=== PATIENT | male | born 1965 | race Caucasian/White ===

== ENCOUNTER 2022-03-29 00:31 | Emergency (ER) | payer MEDICAID, SELFPAY ==
[2022-03-29 00:31] VITALS: BP 179/77; PULSE 79; RESP 16; TEMP 37.1; O2SAT 96; BMI 30.2
--- NOTE | 2022-03-29 00:43 | XR_ITS ---
PROCEDURE INFORMATION: Exam: XR Chest Exam date and time: 03/29/2022 12:47 AM Age: 56 years old Clinical indication: Other: Abdomen pain; Prior surgery; Additional info: Abd pain TECHNIQUE: Imaging protocol: Radiologic exam of the chest. Views: 2 views. COMPARISON: No relevant prior studies available. FINDINGS: Lungs: No acute airspace consolidation. No appreciable pulmonary edema. Pleural spaces: No pleural effusion. No pneumothorax. Heart/Mediastinum: Cardiomediastinal silouhette is within normal limits. Aortic endograft stent within the aortic arch and descending aorta appears grossly intact. Bones/joints: No evidence of acute osseous abnormality. IMPRESSION: No acute findings.
--- NOTE | 2022-03-29 00:43 | CT_ITS ---
PROCEDURE INFORMATION: Exam: CT Abdomen And Pelvis With Contrast Exam date and time: 03/29/2022 1:33 AM Age: 56 years old Clinical indication: Abdominal pain; Prior surgery; Additional info: Abd pain TECHNIQUE: Imaging protocol: Computed tomography of the abdomen and pelvis with contrast. Radiation optimization: All CT scans at this facility use at least one of these dose optimization techniques: automated exposure control; mA and/or kV adjustment per patient size (includes targeted exams where dose is matched to clinical indication); or iterative reconstruction. Contrast material: ISOVUE; Contrast volume: 75 ml; Contrast route: IV; COMPARISON: CR XR CHEST 2V 03/29/2022 12:47 AM FINDINGS: Diaphragm: Small hiatal hernia. Liver: Fatty liver. No suspicious liver lesions. Gallbladder and bile ducts: Status post cholecystectomy. Pancreas: Unremarkable. Spleen: Scattered punctate calcifications in the spleen compatible with sequelae of prior granulomatous disease. Adrenal glands: Unremarkable. Kidneys and ureters: Simple renal cyst in the right kidney. Renal cortical scarring in the lower pole the right kidney. Bilateral kidneys are otherwise unremarkable. Delayed phase imaging demonstrates symmetric excretion of intravenous contrast material into the bilateral renal collecting systems without focal defects. Stomach and bowel: No evidence of small bowel obstruction. Colonic diverticulosis without evidence of acute diverticulitis. Appendix: Appendix is visualized and is normal. Intraperitoneal space: No free fluid. No pneumoperitoneum. Vasculature: Descending aortic endovascular stent graft partially visualized. No abdominal aortic aneurysm or dissection. Proximal abdominal aorta immediately distal to the descending aortic endovascular stent graft measures 4.1 cm in diameter, including an intramural hematoma measuring 14 mm in thickness. Extensive amount of calcified and noncalcified arterial atherosclerosis throughout the aorta without significant stenosis or evidence of plaque ulcerations. No infra-abdominal aortic aneurysm. Proximal right renal artery stent and right common iliac artery stent in place. Lymph nodes: Unremarkable. Urinary bladder: Bladder is decompressed, limiting evaluation. Reproductive: Unremarkable. Bones/joints: Bilateral pars defects at L5 with grade 2 anterolisthesis of L5 on S1. No evidence of acute osseous abnormality. Soft tissues: Small fat containing umbilical hernia. IMPRESSION: 1. No acute findings in the abdomen or pelvis. 2. Proximal abdominal aorta immediately distal to the descending aortic endovascular stent graft measures 4.1 cm in diameter, including an intramural thrombus measuring 14 mm in thickness. No evidence of associated periaortic inflammatory changes. 3. Fatty liver. 4. Colonic diverticulosis without evidence of acute diverticulitis. 5. Bilateral pars defects at L5 with grade 2 anterolisthesis of L5 on S1. 6. Small hiatal hernia. 7. Additional non-acute ancillary findings are detailed above. COMMENTS: Consistent with the [employer]'s Incidental Findings Committee white paper (J Am Uday Radiol 2018): Any incidental renal lesion less than 1 cm or classified as too small to characterize, or any incidental cystic renal lesion characterized as simple-appearing, is likely benign. No follow-up imaging is recommended for these lesions per consensus recommendations based on imaging criteria.
--- NOTE | 2022-03-29 00:46 | ECG_ITS ---
APPROVED REPORT Exam: Resting ECG HR:77 bpm ECG Measurements Heart Rate 77 AXES OK 155 P 54 QRSd 93 QRS 17 QT 407 T 17 QTc 438 Conclusion SINUS RHYTHM NORMAL ECG UNCONFIRMED REPORT Electronically signed by : Cesar Pagan MD 03/31/2022 21:21:57
--- NOTE | 2022-03-29 00:56 | HMH.EDABDPAI ---
Discharge Plan Disposition Patient Disposition: Home, Self-Care Clinical Impressions Clinical Impression: Abdominal pain, Diabetes mellitus Instructions Patient Instructions: DI for Acute Abdominal Pain Discharge ED Provider: Shoaib Tello Abdominal Pain HPI General Chief Complaint: Abdominal Pain Stated Complaint: ABD Pain Time Seen by Provider: 03/29/22 00:56 Mode of Arrival: EMS Source of Information: Patient, EMS and Medical Record Limitations: No Limitations Description of Symptoms (Recalled from ER Triage Doc. by RN): pt stated he had sharp abdominal pain today so badly that it knocked him down. pt reports no LOC pt a&o x4. pt then stated that he feels like his stomach is on fire. History of Present Illness HPI narrative: acute upper abd pain w/o fever or vomiting - has hx of diabetes - no melena complaint: abdominal pain Onset (ago): hour(s) Consistency: intermittent Location: epigastric Severity: moderate Quality: sharp Radiation: epigastric Associated symptoms: denies other symptoms Related Data Allergies Allergy/AdvReac Type Severity Reaction Status Date / Time No Known Allergies Allergy Verified 03/29/22 00:35 PFSH [facility] Medical History (Updated 03/29/22 @ 02:59 by Shoaib Tello MD) Arterial dissection Deep vein thrombosis (DVT) Diabetes History of heart attack History of stroke Hypertension Surgical History (Updated 03/29/22 @ 00:47 by Ailyn Wise RN) History of cholecystectomy Social History Smoking Status: Unknown if ever smoked alcohol intake: never current occupational status: employed Travel in the last 8 weeks: None ROS Obtained: Yes All systems reviewed & no additional complaints except as documented Cardiovascular Cardiovascular: Denies dyspnea Respiratory Respiratory: Denies dyspnea Gastrointestinal Gastrointestingal: Reports as per HPI; Denies melena Physical Exam General General appearance: alert Head Head exam: normocephalic Eye Eye exam: Present PERRL and EOMI; Absent scleral icterus ENT ENT exam: Present mucous membranes moist Neck Neck exam: Present trachea midline Respiratory Respiratory exam: Present normal lung sounds bilaterally; Absent respiratory distress Cardiovascular Cardiovascular exam: Present regular rate and systolic murmur Abdominal Exam Abdominal exam: Present soft and tenderness; Absent guarding or rebound Abdominal tenderness: Present epigastrium and moderate Extremities Exam Extremities exam: Present full ROM Neurological Exam Neurological exam: Present alert, oriented X3 and CN II-XII intact Psychiatric Psychiatric exam: Present normal affect Skin Skin exam: Absent rash Medical Decision Making Medical Records Medical records reviewed: Yes I reviewed the patient's medical records. Joey Inquiry Pt receiving controlled substance: No Vital Signs: 03/29/22 00:31 Temperature 98.8 F Temperature Source Oral Pulse Rate [Left] 79 Respiratory Rate 16 Blood Pressure [Right Arm] 179/77 H Blood Pressure Mean [Right Arm] 111 02 Sat by Pulse Oximetry 96 Oxygen Delivery Method Room Air Lab Data Lab results reviewed: Yes I reviewed the patient's lab results. Lab Results 03/29/22 00:30: WBC 9.5, RBC 5.48, Hgb 16.4, Hct 51.7, MCV 94.3 H, MCH 29.9, MCHC 31.7 L, RDW 15.4, Plt Count 245, MPV 9.3, Neut % (Auto) 70.8, Lymph % (Auto) 18.8, [place] % (Auto) 5.5, Eos % (Auto) 4.0, Baso % (Auto) 1.0, Neut # (Auto) 6.8, Lymph # (Auto) 1.8, [place] # (Auto) 0.5, Eos # (Auto) 0.4, Baso # (Auto) 0.1 03/29/22 00:30: Sodium 137, Potassium 4.2, Chloride 102, Carbon Dioxide 29, Anion Gap 10.2, BUN 21 H, Creatinine 1.20, Estimated Creat Clear 87, Estimated GFR 63, Est GFR ( Amer) 76, Glucose 363 H, Calcium 8.6, Total Bilirubin 0.3, AST 32, ALT 40, Alkaline Phosphatase 405 H, Troponin I < 0.01, Total Protein 6.6, Albumin 3.7, Globulin 2.9, Albumin/Globulin Ratio 1.3, Amylase 67, Lipase 186 03/29/22 00:30: Acetone Level None detecte
[2022-03-29 00:57] LABS: Basophils # 0.1 K/mm3 (0-0.2); Eosinophils # 0.4 K/mm3 (0.0-0.4); Hematocrit 51.7 % (42.0-52.0); Hemoglobin 16.4 g/dL (14.1-18.0); Lymphocytes # 1.8 K/mm3 (0.7-4.5); Lymphocytes % 18.8 % (10-50); Mean Corpuscular HGB Conc 31.7 g/dL (31.8-35.4); Mean Corpuscular Hemoglobin 29.9 pg (27.0-31.2); Mean Corpuscular Volume 94.3 fl (80-94); Mean Platelet Volume 9.3 fl (7.4-10.4); Monocytes # 0.5 K/mm3 (0.1-1.0); Monocytes % 5.5 % (1.7-9.3); Neutrophils # 6.8 K/mm3 (1.8-7.8); Neutrophils % 70.8 % (37.0-80.0); Platelet Count 245 K/mm3 (142-424); Red Blood Count 5.48 M/mm3 (4.60-6.20); Red Cell Distribution Width 15.4 % (11.5-17.5); White Blood Count 9.5 K/mm3 (4.8-10.8)
[2022-03-29 01:00] VITALS: BP 197/83; PULSE 80; O2SAT 91
[2022-03-29 01:04] LABS: Coronavirus 19, PCR Not Detected (NotDetected); Influenza A, PCR Not Detected (NotDetected); Influenza B, PCR Not Detected (NotDetected)
[2022-03-29 01:24] LABS: Alanine Aminotransferase 40 U/L (12-78); Albumin Level 3.7 g/dl (3.5-5.0); Albumin/Globulin Ratio 1.3 (1.1-1.8); Alkaline Phosphatase 405 U/L (38-126); Amylase 67 U/L (30-110); Anion Gap 10.2 mEq/L (5-15); Aspartate Amino Transferase 32 U/L (17-59); Bilirubin,Total 0.3 mg/dl (0.2-1.3); Blood Urea Nitrogen 21 mg/dl (9-20); Calcium 8.6 mg/dl (8.4-10.2); Carbon Dioxide 29 mmol/L (22.0-30.0); Chloride 102 mmol/L (98-107); Creatinine Clearance Estimated 87 mL/min (50-200); Estimated Glomerular Filt Rate 63 ml/min (>60); GFR (African American) 76 ML/MIN (>60); Globulin 2.9 g/dL (1.3-3.2); Glucose 363 mg/dl (74-100); Lipase 186 U/L (23-300); Potassium 4.2 mmoL/L (3.5-5.1); Sodium 137 mmol/L (136-145); Total Protein,Serum 6.6 g/dl (6.3-8.2)
[2022-03-29 01:46] LABS: Troponin I < 0.01 ng/ml (0.00-0.034)
[2022-03-29 01:52] LABS: Acetone, Serum (Rapid) None Detected (None Detect)
[2022-03-29 01:54] LABS: Microscopic, Urine URINE MICROSCOPIC (MICROSCOPIC)
[2022-03-29 01:56] LABS: Appearance,Urine CLEAR (Clear); Bilirubin,Urine Negative (Negative); Blood, Urine Negative (Negative); Color,Urine YELLOW (Yellow); Glucose,Urine (UA) 3+ (Negative); Ketones,Urine Negative (Negative); Leukocyte Esterase,Urine Negative (Negative); Nitrate,Urine Negative (Negative); Protein,Urine 1+ (Negative); Specific Gravity, Urine 1.025 (1.005-1.030); Urobilinogen,Urine 0.2 EU/dl (0.2)
[2022-03-29 02:30] LABS: Bacteria,Urine Trace /lpf; Mucus,Urine 1+ /lpf; Squamous Epithelial Cell,Urine Occasional #/hpf (0-5); WBC,Urine Occasional #/hpf (0-3)
[2022-03-29 04:33] VITALS: BP 192/75; PULSE 70; RESP 24; TEMP 36.8; O2SAT 96
== END 2022-03-29 04:36 | disposition home or self-care (01) ==
PROVIDERS: Emergency Provider Emergency Medicine; PCP Family Medicine
DX: R10.9 Unspecified abdominal pain (principal); E11.9 Type 2 diabetes mellitus without complications; Z87.19 Personal history of other diseases of the digestive system
CPT/HCPCS: 71046; 74177; 80053; 81001; 82009; 82150; 83690; 84484; 85025; 93005; 96365; 96366; 96375; 99284; C9803; J2405; Q9967; U0003; U0005

== ENCOUNTER 2022-06-16 07:20 | Emergency (ER) | payer MEDICAID, SELFPAY ==
[2022-06-16 07:21] VITALS: BP 182/107; PULSE 115; RESP 18; TEMP 36.6; O2SAT 99; BMI 30.4
--- NOTE | 2022-06-16 07:32 | PC.NURSE ---
DR. PERKINS AT BEDSIDE FOR EVALUATION
--- NOTE | 2022-06-16 07:35 | CT_ITS ---
PROCEDURE INFORMATION: Exam: CT Abdomen And Pelvis With Contrast Exam date and time: 06/16/2022 8:16 AM Age: 56 years old Clinical indication: Nausea; Additional info: Abd pain, HX of diverticulitis, HX of aaa TECHNIQUE: Imaging protocol: Computed tomography of the abdomen and pelvis with contrast. Radiation optimization: All CT scans at this facility use at least one of these dose optimization techniques: automated exposure control; mA and/or kV adjustment per patient size (includes targeted exams where dose is matched to clinical indication); or iterative reconstruction. Contrast material: ISOVUE; Contrast volume: 75 ml; Contrast route: IV; COMPARISON: CT ABDOMEN PELVIS W CON 03/29/2022 1:33 AM FINDINGS: Lungs: Interstitial prominence, without acute airspace or pleural disease. Liver: Fatty infiltration of the liver. Gallbladder and bile ducts: Status post cholecystectomy with mild biliary ductal dilatation. Pancreas: Borderline pancreatic ductal dilatation, without focal mass. Spleen: Splenic granulomata. Adrenal glands: Stable left adrenal nodularity. Kidneys and ureters: Stable 3.2 cm right renal cyst. Duplicated right upper collecting system with stable dilatation of the lower pole moiety and atrophy of the inferior right kidney. Additional 1 mm nonobstructing right renal calculus. Stomach and bowel: Gastric and colonic wall thickening. Diverticula, without pericolonic inflammation. Appendix: No acute appendicitis. Intraperitoneal space: No significant free fluid. No significant free fluid. Vasculature: Endoluminal stent graft in association with a stable 4.7 cm suprarenal abdominal aortic aneurysm. Additional right renal and iliac artery stents. Prominent atherosclerotic plaque and vascular calcification. Lymph nodes: Subcentimeter lymph nodes. Urinary bladder: Normal bladder morphology. Reproductive: Unremarkable as visualized. Bones/joints: L5 spondylolysis and 9 mm anterolisthesis of L5 on S1. L5-S1 degenerative change and vacuum disc. Mild chronic compression deformities in the spine. Soft tissues: Small fat containing umbilical and inguinal hernias. IMPRESSION: 1. Endoluminal stent graft in association with a stable 4.7 cm suprarenal abdominal aortic aneurysm. 2. Duplicated right upper collecting system with stable dilatation of the lower pole moiety and atrophy of the inferior right kidney. Additional 1 mm nonobstructing right renal calculus. 3. Gastric and colonic wall thickening. 4. Additional findings as described above.
[2022-06-16 07:41] LABS: Basophils # 0.1 K/mm3 (0-0.2); Basophils % 1.2 % (0.1-2.0); Eosinophils # 0.1 K/mm3 (0.0-0.4); Eosinophils % 1.3 % (0.1-12.0); Hematocrit 51.8 % (42.0-52.0); Hemoglobin 16.8 g/dL (14.1-18.0); Lymphocytes # 1.7 K/mm3 (0.7-4.5); Lymphocytes % 19.4 % (10-50); Mean Corpuscular HGB Conc 32.3 g/dL (31.8-35.4); Mean Corpuscular Hemoglobin 31.6 pg (27.0-31.2); Mean Corpuscular Volume 97.7 fl (80-94); Mean Platelet Volume 9.4 fl (7.4-10.4); Monocytes # 0.6 K/mm3 (0.1-1.0); Monocytes % 6.3 % (1.7-9.3); Neutrophils # 6.4 K/mm3 (1.8-7.8); Neutrophils % 71.9 % (37.0-80.0); Platelet Count 315 K/mm3 (142-424); Red Cell Distribution Width 15.1 % (11.5-17.5); White Blood Count 8.9 K/mm3 (4.8-10.8)
--- NOTE | 2022-06-16 07:41 | PC.NURSE ---
urine specimen collected and sent to lab
[2022-06-16 07:44] LABS: Appearance,Urine CLEAR (Clear); Bilirubin,Urine Negative (Negative); Blood, Urine Negative (Negative); Color,Urine YELLOW (Yellow); Glucose,Urine (UA) 3+ (Negative); Ketones,Urine 2+ (Negative); Leukocyte Esterase,Urine Negative (Negative); Microscopic, Urine URINE MICROSCOPIC (MICROSCOPIC); Nitrate,Urine Negative (Negative); Protein,Urine 2+ (Negative); Specific Gravity, Urine 1.015 (1.005-1.030); Urobilinogen,Urine 0.2 EU/dl (0.2)
[2022-06-16 07:51] LABS: Albumin Level 3.6 g/dl (3.5-5.0); Albumin/Globulin Ratio 1.2 (1.1-1.8); Alkaline Phosphatase 208 U/L (38-126); Amylase 56 U/L (30-110); Anion Gap 9.4 mEq/L (5-15); Bilirubin,Total 0.4 mg/dl (0.2-1.3); Blood Urea Nitrogen 9 mg/dl (9-20); Calcium 8.8 mg/dl (8.4-10.2); Carbon Dioxide 28 mmol/L (22.0-30.0); Chloride 105 mmol/L (98-107); Creatinine Clearance Estimated 105 mL/min (50-200); Estimated Glomerular Filt Rate 78 ml/min (>60); GFR (African American) 94 ML/MIN (>60); Lipase 218 U/L (23-300); Potassium 4.4 mmoL/L (3.5-5.1); Sodium 138 mmol/L (136-145); Total Protein,Serum 6.6 g/dl (6.3-8.2)
[2022-06-16 07:52] LABS: Alanine Aminotransferase 43 U/L (12-78); Aspartate Amino Transferase 36 U/L (17-59); Lactic Acid 1.9 mmol/L (0.7-2.1)
[2022-06-16 07:54] LABS: Glucose 450 mg/dl (74-100)
--- NOTE | 2022-06-16 07:54 | PC.NURSE ---
notified ER of critical glucose
[2022-06-16 07:56] LABS: Bacteria,Urine Trace /lpf; Squamous Epithelial Cell,Urine Occasional #/hpf (0-5)
--- NOTE | 2022-06-16 07:58 | PC.NURSE ---
pt medicated per emar, no needs at this time. at bedside
[2022-06-16 08:05] VITALS: BP 182/107; PULSE 113; O2SAT 98
--- NOTE | 2022-06-16 08:06 | PC.NURSE ---
rad here to get pt
--- NOTE | 2022-06-16 08:08 | PC.NURSE ---
DR STARK AT BEDSIDE
--- NOTE | 2022-06-16 08:11 | HMH.EDGENADL ---
Discharge Plan Disposition Patient Disposition: Home, Self-Care Condition: Good Prescriptions Prescriptions: New hydrocodone-acetaminophen 5-325 mg tablet 1 tab PO Q6H PRN (Reason: pain) Qty: 8 0RF Referrals Follow up/Referrals: Maxwell Rodriguez [Primary Care Provider] - See instructions Activity Restrictions/Add. Instructions Additional Instructions/Restrictions: [place] as needed for pain. Follow-up with your primary care provider for gastroenterology referral. CT scan disc is provided to you for follow-up, it shows thickening of the wall of your stomach and colon. Additional instructions for ABDOMINAL PAIN: See your physician as soon as possible for further evaluation. Return immediately if worsening abdominal pain, vomiting, shortness of breath, fever, vomiting of blood or abdominal distention. Recheck your blood sugar this afternoon and use your Lantus and lispro insulin as per your usual routine. Follow-up with your primary care provider for further care of your diabetes and blood pressure Clinical Impressions Clinical Impression: Abdominal pain, Gastric wall thickening, Colon wall thickening, Acute hyperglycemia, Elevated blood pressure reading Instructions Patient Instructions: DI for Acute Abdominal Pain, DI for Hyperglycemia -- Adult, DI for High Blood Pressure Discharge ED Provider: Micah Holland General Adult HPI General Chief complaint: Abdominal Pain Stated complaint: stomach and back pain Time Seen by Provider: 06/16/22 08:00 Mode of Arrival: Ambulatory Limitations: No Limitations Description of Symptoms (Recalled from ER Triage Doc. by RN): pt reports week long upper gastric pain that radiates to back. reports pain as burning. denies emesis or fever. 3-4 episodes of diarrhea. History of Present Illness HPI narrative: The patient states that he has diverticulitis. He complains of diffuse upper abdominal pain for 1 week, describes as a burning sensation. The pain radiates to his back. He has had diarrhea without blood, but no vomiting, no fever. He says he was seen at [facility] on Friday and diagnosed with diverticulitis and started on Cipro and Flagyl. He had a teleconference with his primary care provider on morning and says he is going to be referred to a herb grower, and was told at the did not get better to come back to the emergency department. He came to this emergency department today because it was too long of a drive to go back to [place]. He has had prior cholecystectomy. He has had an aortic endograft for aortic aneurysm. He has had kidney cancer 2 years ago, says that he had a kidney that but he did not have surgery on it. He has not had a prior episode of diverticulitis. He had a colonoscopy 2 years ago. Related Data Previous Rx's Medication Instructions Recorded hydrocodone 5 mg-acetaminophen 325 1 tab PO Q6H PRN pain #8 tabs 06/16/22 mg tablet Allergies Allergy/AdvReac Type Severity Reaction Status Date / Time hydromorphone [From Dilaudid] Allergy Verified 06/16/22 07:55 [facility] Disclaimer: The information contained in this section may have been updated after the patient was seen, as this information can be updated by other users. Medical History (Updated 06/16/22 @ 09:02 by Micah Holland MD) Arterial dissection Deep vein thrombosis (DVT) Diabetes History of heart attack History of stroke Hypertension Surgical History (Updated 03/29/22 @ 00:47 by Ailyn Wise RN) History of cholecystectomy Social History (Updated 03/29/22 @ 03:01 by Shoaib Tello MD) Smoking Status: Current every day smoker alcohol intake: never current occupational status: employed Travel in the last 8 weeks: None ROS Obtained: Yes Systems reviewed as appropriate & no additional complaints except as documented Constitutional Constitutional: Denies fever(s), Denies headache(s) and Denies weakn
--- NOTE | 2022-06-16 08:11 | PC.NURSE ---
PT TO CT SCAN
--- NOTE | 2022-06-16 08:23 | PC.NURSE ---
pt back from rad
--- NOTE | 2022-06-16 08:23 | PC.NURSE ---
PT RETURNED FROM CT
[2022-06-16 08:30] VITALS: BP 172/92; PULSE 102; O2SAT 96
--- NOTE | 2022-06-16 08:43 | PC.NURSE ---
pt rang light to let us know that he was in pain again
--- NOTE | 2022-06-16 08:45 | PC.NURSE ---
PT MEDICATED PER EMAR, NO FURTHER NEEDS AT THIS TIME
--- NOTE | 2022-06-16 08:52 | PC.NURSE ---
DR STARK AT BEDSIDE TO UPDATE PT AND ON POC
[2022-06-16 09:10] VITALS: BP 165/97; PULSE 101; RESP 18; TEMP 36.6; O2SAT 96
[2022-06-16 09:11] LABS: POC Glucose,Bedside 384 (70-110)
== END 2022-06-16 09:10 | disposition home or self-care (01) ==
PROVIDERS: Emergency Medicine; Emergency Provider Emergency Medicine; PCP Family Medicine
DX: E11.65 Type 2 diabetes mellitus with hyperglycemia (principal); I10 Essential (primary) hypertension; R10.10 Upper abdominal pain, unspecified; K31.89 Other diseases of stomach and duodenum; K63.89 Other specified diseases of intestine; Z87.19 Personal history of other diseases of the digestive system; Z86.718 Personal history of other venous thrombosis and embolism; I25.2 Old myocardial infarction; Z86.73 Personal history of transient ischemic attack (TIA), and cerebral infarction without residual deficits; F17.210 Nicotine dependence, cigarettes, uncomplicated
CPT/HCPCS: 74177; 80053; 81001; 82150; 82962; 83605; 83690; 85025; 96361; 96374; 96375; 96376; 99285; J2405; Q9967

== ENCOUNTER 2022-07-31 00:26 | Emergency (ER) | payer MEDICAID, SELFPAY ==
[2022-07-31 00:40] LABS: Microscopic, Urine URINE MICROSCOPIC (MICROSCOPIC)
[2022-07-31 00:41] LABS: Appearance,Urine CLEAR (Clear); Bilirubin,Urine Negative (Negative); Blood, Urine Negative (Negative); Color,Urine YELLOW (Yellow); Glucose,Urine (UA) 2+ (Negative); Ketones,Urine Negative (Negative); Leukocyte Esterase,Urine Negative (Negative); Nitrate,Urine Negative (Negative); Protein,Urine 2+ (Negative); Specific Gravity, Urine >= 1.030 (1.005-1.030); Urobilinogen,Urine 0.2 EU/dl (0.2)
[2022-07-31 00:48] VITALS: BP 186/117; PULSE 86; RESP 18; TEMP 36.6; O2SAT 98; BMI 31.0
--- NOTE | 2022-07-31 00:51 | CT_ITS ---
PROCEDURE INFORMATION: Exam: CT Abdomen And Pelvis With Contrast Exam date and time: 07/31/2022 1:42 AM Age: 56 years old Clinical indication: Abdominal pain; Prior surgery; Surgery type: Cholecystectomy, stents; Additional info: Abd pain TECHNIQUE: Imaging protocol: Computed tomography of the abdomen and pelvis with contrast. Total images: 304 Radiation optimization: All CT scans at this facility use at least one of these dose optimization techniques: automated exposure control; mA and/or kV adjustment per patient size (includes targeted exams where dose is matched to clinical indication); or iterative reconstruction. Contrast material: ISOVUE; Contrast volume: 75 ml; Contrast route: IV; REPORTING DATA: Count of CT and Cardiac NM exams in prior 12 months: This patient has received 2 known CTs and 0 known cardiac nuclear medicine studies in the 12 months prior to the current study. COMPARISON: CT ABDOMEN PELVIS W CON 06/16/2022 8:16 AM FINDINGS: Lungs: Lung bases are clear. Heart: Normal heart size. Diaphragm: Small hiatal hernia. Liver: Normal. No mass. Gallbladder and bile ducts: Status post cholecystectomy. No biliary ductal dilatation. Pancreas: Normal. No ductal dilation. Spleen: Nonenlarged spleen with calcified granuloma. Adrenal glands: Thickened left adrenal gland. Unremarkable right adrenal gland. Kidneys and ureters: Contrast excretion from both kidneys would obscure nephrolithiasis if present. Atrophic lower pole right kidney as previously described. Simple upper pole right renal cyst. Unremarkable left kidney. Stomach and bowel: Stomach is collapsed. No ileus or bowel obstruction. Unremarkable small bowel. Stool in the distal ileum compatible with chronic stasis and delayed fecal transit. Moderate colonic stool burden. Severe sigmoid diverticulosis without acute diverticulitis. Unremarkable rectum. Nonspecific mild focal wall thickening of the colon at the splenic flexure. Appendix: Normal appendix. Intraperitoneal space: Unremarkable. No free air. No significant fluid collection. Vasculature: Status post endovascular stent repair of a proximal abdominal aortic aneurysm. Stable 4.5 cm proximal abdominal aortic aneurysm measured transversely above the level of the celiac artery. No contrast extravasation. Moderate atherosclerotic vascular irregularity. Status post right common iliac artery stent. Right renal artery stent. Lymph nodes: Unremarkable. No enlarged lymph nodes. Urinary bladder: Unremarkable as visualized. Reproductive: Nonenlarged prostate. Bones/joints: Grade 2 anterior spondylolisthesis L5-S1 with severe degenerative change of the L5-S1 disc. Mild degenerative changes remainder of the thoracolumbar spine. Mild degenerative changes bilateral hips and SI joints. Chronic bilateral L5 spondylolysis. Soft tissues: Tiny fat containing umbilical hernia. Surgical clips left groin. Tiny fat containing left inguinal hernia. IMPRESSION: 1. Focal short segmental nonspecific wall thickening of the colon at the splenic flexure without surrounding inflammation. Differential includes evolving colitis, neoplasm, early diverticulitis, or incomplete distention. Recommend follow-up nonemergent colonoscopy if not recently acquired. 2. Severe sigmoid diverticulosis without acute diverticulitis. 3. Stable 4.5 cm aneurysm of the proximal abdominal aorta, status post stent graft repair. 4. Multiple additional chronic and incidental findings. COMMENTS: Consistent with the [employer]'s Incidental Findings Committee white paper (J Am Uday Radiol 2018): Any incidental renal lesion less than 1
[2022-07-31 01:00] VITALS: BP 189/105; PULSE 84; O2SAT 98
[2022-07-31 01:04] LABS: Basophils # 0.1 K/mm3 (0-0.2); Basophils % 1.3 % (0.1-2.0); Eosinophils # 0.3 K/mm3 (0.0-0.4); Eosinophils % 3.3 % (0.1-12.0); Hematocrit 51.5 % (42.0-52.0); Lymphocytes % 19.1 % (10-50); Mean Corpuscular HGB Conc 32.9 g/dL (31.8-35.4); Mean Corpuscular Hemoglobin 31.1 pg (27.0-31.2); Mean Corpuscular Volume 94.4 fl (80-94); Mean Platelet Volume 8.5 fl (7.4-10.4); Monocytes # 0.6 K/mm3 (0.1-1.0); Monocytes % 5.4 % (1.7-9.3); Neutrophils # 7.3 K/mm3 (1.8-7.8); Platelet Count 266 K/mm3 (142-424); Red Blood Count 5.46 M/mm3 (4.60-6.20); White Blood Count 10.3 K/mm3 (4.8-10.8)
[2022-07-31 01:06] LABS: Bacteria,Urine 1+ /lpf; Mucus,Urine 1+ /lpf; Squamous Epithelial Cell,Urine Occasional #/hpf (0-5)
--- NOTE | 2022-07-31 01:12 | HMH.EDABDPAI ---
Discharge Plan Disposition Patient Disposition: Home, Self-Care Prescriptions Prescriptions: New metronidazole 500 mg Tablet 500 mg PO TID Qty: 30 0RF cephalexin [cephalexin] 500 mg capsule 500 mg PO TID Qty: 30 0RF No Action hydrocodone-acetaminophen 5-325 mg tablet 1 tab PO Q6H PRN (Reason: pain) Qty: 8 0RF Referrals Follow up/Referrals: Maxwell Rodriguez [Primary Care Provider] - See instructions Clinical Impressions Clinical Impression: Abdominal pain, Diverticulitis, Diabetes mellitus Stand Alone Forms Stand Alone Forms: Work/School Release Instructions Patient Instructions: DI for Acute Abdominal Pain Discharge ED Provider: Elisha (ED)Shoaib Abdominal Pain HPI General Chief Complaint: Abdominal Pain Stated Complaint: abd pain, diarrhea Time Seen by Provider: 07/31/22 01:12 Mode of Arrival: Ambulatory Source of Information: Patient, Spouse and Medical Record Limitations: No Limitations Description of Symptoms (Recalled from ER Triage Doc. by RN): pt c/o LUQ paid that radiates to his mid back and diarrhea. pain is 10/10 History of Present Illness HPI narrative: lt sided abd pain over the last few days with rad to back and had diarrhea w/o blood yesterday - was seen about 1 month ago for same issues - no fever MD complaint: abdominal pain Onset (ago): day(s) Consistency: intermittent Location: LUQ and L flank Severity: moderate Quality: sharp Associated symptoms: denies other symptoms Related Data Previous Rx's Medication Instructions Recorded hydrocodone 5 mg-acetaminophen 325 1 tab PO Q6H PRN pain #8 tabs 06/16/22 mg tablet cephalexin 500 mg capsule 500 mg PO TID #30 caps 07/31/22 metronidazole 500 mg tablet 500 mg PO TID #30 tabs 07/31/22 Allergies Allergy/AdvReac Type Severity Reaction Status Date / Time hydromorphone [From Dilaudid] Allergy Verified 06/16/22 07:55 [facility] Disclaimer: The information contained in this section may have been updated after the patient was seen, as this information can be updated by other users. Medical History (Updated 07/31/22 @ 03:38 by Shoaib Tello (ED)MD) Arterial dissection Deep vein thrombosis (DVT) Diabetes History of heart attack History of stroke Hypertension Surgical History (Updated 03/29/22 @ 00:47 by Ailyn Wise RN) History of cholecystectomy Social History (Updated 03/29/22 @ 03:01 by Shoaib Tello MD) Smoking Status: Current every day smoker alcohol intake: never current occupational status: employed Travel in the last 8 weeks: None ROS Obtained: Yes All systems reviewed & no additional complaints except as documented Physical Exam General General appearance: alert Head Head exam: normocephalic Eye Eye exam: Present PERRL and EOMI; Absent scleral icterus ENT ENT exam: Present mucous membranes moist Neck Neck exam: Present trachea midline Respiratory Respiratory exam: Absent respiratory distress Cardiovascular Cardiovascular exam: Present regular rate Abdominal Exam Abdominal exam: Present soft and tenderness; Absent guarding or rebound Abdominal tenderness: Present LUQ and mild Extremities Exam Extremities exam: Present full ROM Back Exam Back exam: Absent CVA tenderness (L) Neurological Exam Neurological exam: Present alert, oriented X3 and CN II-XII intact; Absent motor sensory deficit Psychiatric Psychiatric exam: Present normal affect Skin Skin exam: Absent rash Medical Decision Making Medical Records Medical records reviewed: Yes I reviewed the patient's medical records. Joey Inquiry Pt receiving controlled substance: No Vital Signs: 07/31/22 00:48 07/31/22 01:00 07/31/22 01:30 Temperature 97.8 F Temperature Source Oral Pulse Rate 84 87 Pulse Rate [Left] 86 Respiratory Rate 18 Blood Pressure 189/105 H 210/97 H Blood Pressure [Right Arm] 186/117 H Blood Pressure Mean [Right Arm] 140 02 Sat by Pulse Oximetry 98 98 97 Oxygen
[2022-07-31 01:14] LABS: Chloride 104 mmol/L (98-107); Potassium 4.7 mmoL/L (3.5-5.1); Sodium 138 mmol/L (136-145)
[2022-07-31 01:17] LABS: Alanine Aminotransferase 42 U/L (12-78); Alkaline Phosphatase 366 U/L (38-126); Amylase 85 U/L (30-110); Anion Gap 11.7 mEq/L (5-15); Aspartate Amino Transferase 26 U/L (17-59); Bilirubin,Total 0.4 mg/dl (0.2-1.3); Blood Urea Nitrogen 20 mg/dl (9-20); Calcium 9.5 mg/dl (8.4-10.2); Carbon Dioxide 27 mmol/L (22.0-30.0); Creatinine Clearance Estimated 98 mL/min (50-200); Estimated Glomerular Filt Rate 70 ml/min (>60); GFR (African American) 84 ML/MIN (>60); Glucose 322 mg/dl (74-100); Lipase 207 U/L (23-300)
[2022-07-31 01:18] LABS: Albumin Level 4.3 g/dl (3.5-5.0); Albumin/Globulin Ratio 1.4 (1.1-1.8); Globulin 3.1 g/dL (1.3-3.2); Total Protein,Serum 7.4 g/dl (6.3-8.2)
[2022-07-31 01:30] VITALS: BP 210/97; PULSE 87; O2SAT 97
[2022-07-31 01:37] LABS: C-Reactive Protein 25.3 mg/L (0-4)
[2022-07-31 01:47] LABS: Erythrocyte Sedimentation Rate 10 mm/hr (0-20)
[2022-07-31 01:48] LABS: Lactic Acid 1.1 mmol/L (0.7-2.1)
[2022-07-31 03:17] VITALS: BP 193/102; PULSE 90; RESP 16; TEMP 36.9
== END 2022-07-31 03:50 | disposition home or self-care (01) ==
PROVIDERS: Emergency Provider Emergency Medicine; PCP Family Medicine
DX: K57.92 Diverticulitis of intestine, part unspecified, without perforation or abscess without bleeding (principal); E11.9 Type 2 diabetes mellitus without complications; R10.11 Right upper quadrant pain; I77.70 Dissection of unspecified artery; Z86.718 Personal history of other venous thrombosis and embolism; I10 Essential (primary) hypertension; I25.2 Old myocardial infarction; Z86.73 Personal history of transient ischemic attack (TIA), and cerebral infarction without residual deficits; F17.210 Nicotine dependence, cigarettes, uncomplicated; Z90.49 Acquired absence of other specified parts of digestive tract
CPT/HCPCS: 80053; 81001; 82150; 83605; 83690; 85025; 85651; 86140; 96361; 96365; 96375; 99285; J0696; Q9967

== ENCOUNTER 2022-08-07 10:12 | Emergency (ER) | payer MEDICAID, SELFPAY ==
[2022-08-07] VITALS (8 sets, daily range): BP systolic 171–210; BP diastolic 94–108; PULSE 69–85; RESP 16; TEMP 36.6–36.7; O2SAT 97–99; BMI 29.7
[2022-08-07 10:32] LABS: Microscopic, Urine URINE MICROSCOPIC (MICROSCOPIC)
[2022-08-07 10:34] LABS: Appearance,Urine CLEAR (Clear); Bilirubin,Urine Negative (Negative); Blood, Urine Negative (Negative); Color,Urine YELLOW (Yellow); Glucose,Urine (UA) 2+ (Negative); Ketones,Urine Negative (Negative); Leukocyte Esterase,Urine Negative (Negative); Nitrate,Urine Negative (Negative); PH,Urine 7.5 (5.0-8.5); Protein,Urine 1+ (Negative); Specific Gravity, Urine 1.015 (1.005-1.030); Urobilinogen,Urine 0.2 EU/dl (0.2)
--- NOTE | 2022-08-07 10:40 | CT_ITS ---
FINAL REPORT CLINICAL HISTORY: abd pain, vomiting COMPARISON: 07/31/2022 FINDINGS: CT OF THE ABDOMEN AND PELVIS WITH CONTRAST Axial CT images of the abdomen and pelvis were obtained after the administration of intravenous contrast. Coronal reformatted images were also obtained and reviewed.This study was performed with techniques to keep radiation doses as low as reasonably achievable (ALARA). Individualized dose reduction techniques using automated exposure control or adjustment of mA and/or kV according to the patient's size were employed. Abdomen: There is mild bibasilar atelectasis. There is a descending thoracic aorta and upper abdominal aorta stent graft which is patent. The upper abdominal aorta at the diaphragm measures 4.5 cm, stable. The heart is normal in size. There are postoperative changes from cholecystectomy. There is mild biliary ductal dilatation which is likely post cholecystectomy change. The liver has an unremarkable appearance. The spleen is unremarkable. There is mild nodularity of the left adrenal gland, favor an adenoma. The pancreas has an unremarkable appearance. There is a 33 mm cyst in the right kidney. There is no evidence of hydronephrosis. There is no free fluid or adenopathy. No mass or abnormal fluid collection is seen. The previously seen colonic narrowing at the splenic flexure is no longer visualized. There is a moderate-large amount of retained stool. There is a small umbilical hernia containing fat. Pelvis: The appendix is normal. The urinary bladder is unremarkable. No inflammatory process is seen. There is no evidence of mass or adenopathy. There is sigmoid diverticulosis with wall thickening which may represent muscular hypertrophy. There is no evidence of bowel obstruction. There is a small left inguinal hernia containing fat. There is a right iliac artery stent and a right renal artery stent, both of which are patent. There is bilateral L5 pars defects. IMPRESSION: Question narrowing of the colon at the splenic flexure is no longer seen. Other findings are stable. No acute inflammatory process. Reviewed, Interpreted and Dictated by Jd Hunt III, MD Transcribed by Nancy Fernández Authenticated and [facility]
--- NOTE | 2022-08-07 10:42 | HMH.EDABDPAI ---
Discharge Plan Disposition Patient Disposition: Home, Self-Care Condition: Good Prescriptions Prescriptions: New hyoscyamine sulfate [Levsin/SL] 0.125 mg tablet, sublingual 0.125 mg PO Q8H PRN (Reason: dyspepsia) Qty: 14 0RF ondansetron 4 mg tablet,disintegrating 4 mg PO TID PRN (Reason: nausea and vomiting) 4 Days Qty: 10 0RF No Action hydrocodone-acetaminophen 5-325 mg tablet 1 tab PO TID PRN (Reason: pain) Qty: 6 0RF metronidazole 500 mg Tablet 500 mg PO TID Qty: 30 0RF cephalexin [cephalexin] 500 mg capsule 500 mg PO TID Qty: 30 0RF Referrals Follow up/Referrals: Maxwell Rodriguez [Primary Care Provider] - See instructions Activity Restrictions/Add. Instructions Additional Instructions/Restrictions: Follow-up as discussed with a telex operator. Adhere to high-fiber diet and take stool softeners as needed for constipation. Clinical Impressions Clinical Impression: Abdominal pain Instructions Patient Instructions: DI for Acute Abdominal Pain Discharge ED Provider: Mic López Abdominal Pain HPI General Chief Complaint: Abdominal Pain Stated Complaint: Abd pain radiating to back Time Seen by Provider: 08/07/22 10:23 Mode of Arrival: Ambulatory Source of Information: Patient and Spouse Limitations: No Limitations Description of Symptoms (Recalled from ER Triage Doc. by RN): pt comes in with c/o left sided abdominal pain that began last night. pt was seen in er recently for simliar issues. History of Present Illness HPI narrative: Patient presents complaining of severe abdominal pain radiating to the back that began last night. He denies exacerbating or alleviating factors. He had nausea without vomiting his states he has been having small drops of blood passed rectally. He was recently here for abdominal pain and at that time was diagnosed with diverticulitis for which antibiotics were prescribed. Related Data Previous Rx's Medication Instructions Recorded cephalexin 500 mg capsule 500 mg PO TID #30 caps 07/31/22 hydrocodone 5 mg-acetaminophen 325 1 tab PO TID PRN pain #6 tabs 07/31/22 mg tablet metronidazole 500 mg tablet 500 mg PO TID #30 tabs 07/31/22 hyoscyamine sulfate 0.125 mg 0.125 mg PO Q8H PRN dyspepsia #14 08/07/22 sublingual tablet (Levsin/SL) tabs ondansetron 4 mg disintegrating 4 mg PO TID PRN nausea and 08/07/22 tablet vomiting 4 days #10 tabs Allergies Allergy/AdvReac Type Severity Reaction Status Date / Time hydromorphone [From Dilaudid] Allergy Verified 08/07/22 10:26 [facility] Disclaimer: The information contained in this section may have been updated after the patient was seen, as this information can be updated by other users. Medical History Arterial dissection Deep vein thrombosis (DVT) Diabetes History of heart attack History of stroke Hypertension Surgical History History of cholecystectomy Social History Smoking Status: Current every day smoker alcohol intake: never current occupational status: employed Travel in the last 8 weeks: None ROS Obtained: Yes All systems reviewed & no additional complaints except as documented Physical Exam General General appearance: other (Appears uncomfortable) Head Head exam: atraumatic, normocephalic and normal inspection Eye Eye exam: Present normal appearance, PERRL and EOMI ENT ENT exam: Present normal exam, normal oropharynx, mucous membranes moist, TM's normal bilaterally and normal external ear exam Neck Neck exam: Present normal inspection, full ROM and trachea midline; Absent meningismus or lymphadenopathy Chest Chest inspection: Present normal inspection and symmetric chest wall rise; Absent tenderness Respiratory Respiratory exam: Present normal lung sounds bilaterally; Absent respiratory distress Cardiovascular
[2022-08-07 10:44] LABS: Squamous Epithelial Cell,Urine Occasional #/hpf (0-5); WBC,Urine Occasional #/hpf (0-3)
[2022-08-07 10:45] LABS: Bacteria,Urine Trace /lpf
[2022-08-07 10:48] LABS: Basophils # 0.1 K/mm3 (0-0.2); Basophils % 1.2 % (0.1-2.0); Eosinophils # 0.3 K/mm3 (0.0-0.4); Eosinophils % 3.2 % (0.1-12.0); Hematocrit 51.3 % (42.0-52.0); Hemoglobin 17.1 g/dL (14.1-18.0); Lymphocytes # 1.9 K/mm3 (0.7-4.5); Lymphocytes % 18.6 % (10-50); Mean Corpuscular HGB Conc 33.3 g/dL (31.8-35.4); Mean Corpuscular Hemoglobin 32.1 pg (27.0-31.2); Mean Corpuscular Volume 96.3 fl (80-94); Mean Platelet Volume 9.4 fl (7.4-10.4); Monocytes # 0.5 K/mm3 (0.1-1.0); Monocytes % 4.3 % (1.7-9.3); Neutrophils # 7.5 K/mm3 (1.8-7.8); Neutrophils % 72.7 % (37.0-80.0); Platelet Count 288 K/mm3 (142-424); Red Blood Count 5.33 M/mm3 (4.60-6.20); Red Cell Distribution Width 16.9 % (11.5-17.5); White Blood Count 10.4 K/mm3 (4.8-10.8)
[2022-08-07 10:52] LABS: Alanine Aminotransferase 38 U/L (12-78); Albumin Level 4.3 g/dl (3.5-5.0); Albumin/Globulin Ratio 1.5 (1.1-1.8); Alkaline Phosphatase 248 U/L (38-126); Anion Gap 7.2 mEq/L (5-15); Aspartate Amino Transferase 30 U/L (17-59); Bilirubin,Total 0.4 mg/dl (0.2-1.3); Blood Urea Nitrogen 18 mg/dl (9-20); Calcium 8.9 mg/dl (8.4-10.2); Carbon Dioxide 30 mmol/L (22.0-30.0); Chloride 104 mmol/L (98-107); Creatinine Clearance Estimated 114 mL/min (50-200); Estimated Glomerular Filt Rate 88 ml/min (>60); GFR (African American) 106 ML/MIN (>60); Globulin 2.8 g/dL (1.3-3.2); Glucose 271 mg/dl (74-100); Lipase 145 U/L (23-300); Potassium 4.2 mmoL/L (3.5-5.1); Sodium 137 mmol/L (136-145); Total Protein,Serum 7.1 g/dl (6.3-8.2)
--- NOTE | 2022-08-07 11:05 | PC.NURSE ---
pt to CT scan via wheelchair
--- NOTE | 2022-08-07 11:58 | PC.NURSE ---
notified ER MD requesting more pain medication.
--- NOTE | 2022-08-07 12:07 | PC.NURSE ---
called rad for prelim report
--- NOTE | 2022-08-07 12:23 | PC.NURSE ---
rounded on pts room to see if they had any needs. pt stated that there were no needs at this time
--- NOTE | 2022-08-07 12:47 | PC.NURSE ---
contacted rad to check on status of ct scan, rad staff states scan is still in a locked status
--- NOTE | 2022-08-07 13:02 | PC.NURSE ---
updated pt ct result in the computer and ER MD is aware and will be in to discuss it with him
== END 2022-08-07 13:42 | disposition home or self-care (01) ==
PROVIDERS: Emergency Provider Emergency Medicine; PCP Family Medicine
DX: K57.92 Diverticulitis of intestine, part unspecified, without perforation or abscess without bleeding (principal); I25.2 Old myocardial infarction; Z86.73 Personal history of transient ischemic attack (TIA), and cerebral infarction without residual deficits
CPT/HCPCS: 74177; 80053; 81001; 83690; 85025; 87086; 96374; 96375; 96376; 99285; J2405; Q9967

== ENCOUNTER 2022-08-08 02:38 | Emergency (ER) | payer MEDICAID, SELFPAY ==
[2022-08-08 02:38] VITALS: BP 200/116; PULSE 94; RESP 18; TEMP 36.9; O2SAT 97; BMI 29.7
--- NOTE | 2022-08-08 02:48 | PC.NURSE ---
manual pressure obtained at this time 200/116 reported to
--- NOTE | 2022-08-08 02:54 | ECG_ITS ---
APPROVED REPORT Exam: Resting ECG HR:88 bpm ECG Measurements Heart Rate 88 AXES MN 150 P 67 QRSd 86 QRS 3 QT 366 T 66 QTc 412 Conclusion SINUS RHYTHM NONSPECIFIC T-WAVE ABNORMALITY BORDERLINE ECG UNCONFIRMED REPORT Electronically signed by : Cesar Pagan MD 08/08/2022 07:43:49
[2022-08-08 03:03] LABS: Basophils # 0.1 K/mm3 (0-0.2); Basophils % 1.2 % (0.1-2.0); Chloride 104 mmol/L (98-107); Eosinophils # 0.3 K/mm3 (0.0-0.4); Eosinophils % 2.8 % (0.1-12.0); Hematocrit 50.5 % (42.0-52.0); Hemoglobin 16.7 g/dL (14.1-18.0); Lymphocytes # 2.2 K/mm3 (0.7-4.5); Lymphocytes % 18.8 % (10-50); Mean Corpuscular Hemoglobin 31.6 pg (27.0-31.2); Mean Corpuscular Volume 95.6 fl (80-94); Mean Platelet Volume 8.6 fl (7.4-10.4); Monocytes # 0.5 K/mm3 (0.1-1.0); Monocytes % 4.5 % (1.7-9.3); Neutrophils # 8.4 K/mm3 (1.8-7.8); Neutrophils % 72.7 % (37.0-80.0); Platelet Count 277 K/mm3 (142-424); Red Blood Count 5.28 M/mm3 (4.60-6.20); Red Cell Distribution Width 15.3 % (11.5-17.5); Sodium 140 mmol/L (136-145); White Blood Count 11.5 K/mm3 (4.8-10.8)
[2022-08-08 03:04] LABS: Potassium 4.2 mmoL/L (3.5-5.1)
[2022-08-08 03:04] LABS: Coronavirus 19, PCR Not Detected (NotDetected); Influenza A, PCR Not Detected (NotDetected); Influenza B, PCR Not Detected (NotDetected)
[2022-08-08 03:06] LABS: Alanine Aminotransferase 39 U/L (12-78); Alkaline Phosphatase 240 U/L (38-126); Amylase 66 U/L (30-110); Anion Gap 9.2 mEq/L (5-15); Aspartate Amino Transferase 33 U/L (17-59); Bilirubin,Total 0.4 mg/dl (0.2-1.3); Blood Urea Nitrogen 21 mg/dl (9-20); Carbon Dioxide 31 mmol/L (22.0-30.0); Creatinine Clearance Estimated 103 mL/min (50-200); Estimated Glomerular Filt Rate 78 ml/min (>60); GFR (African American) 94 ML/MIN (>60)
[2022-08-08 03:07] LABS: Albumin Level 4.2 g/dl (3.5-5.0); Albumin/Globulin Ratio 1.4 (1.1-1.8); Calcium 8.8 mg/dl (8.4-10.2); Globulin 2.9 g/dL (1.3-3.2); Glucose 275 mg/dl (74-100); Lipase 166 U/L (23-300); Total Protein,Serum 7.1 g/dl (6.3-8.2)
[2022-08-08 03:12] LABS: C-Reactive Protein 17.7 mg/L (0-4)
--- NOTE | 2022-08-08 03:27 | PC.NURSE ---
I went to ask pt if he had a way to get home prior to giving narcotics and he stated he did not. MD gave verbal orders to give Ofirmev instead of morphine. I informed pt that MD has ordered IV tylenol, zofran and some fluids and I was going to go prepare them. Pt said alright. Shortly after I left pt rang out and told me I dont want that shit, it wont do anything for me. I asked pt if he was sure he didnt want to give it a chance and he responded that I would rather him discharge me and I'll walk home. made aware of pt refusing medication.
--- NOTE | 2022-08-08 03:35 | HMH.EDABDPAI ---
Discharge Plan Disposition Patient Disposition: Home, Self-Care Prescriptions Prescriptions: No Action lisinopril 20 mg tablet 20 mg PO DAILY omeprazole 40 mg capsule,delayed release(DR/EC) 40 mg PO DAILY aspirin 81 mg tablet,chewable 81 mg PO DAILY Label Comments: TAKE 1 TABLET BY MOUTH EVERY DAY Referrals Follow up/Referrals: Maxwell Rodriguez [Primary Care Provider] - See instructions Clinical Impressions Clinical Impression: Abdominal pain, Diabetes mellitus, HTN (hypertension) Instructions Patient Instructions: DI for Acute Abdominal Pain Discharge ED Provider: Elisha (ED)Shoaib Abdominal Pain HPI General Chief Complaint: Abdominal Pain Stated Complaint: Abd Pain Time Seen by Provider: 08/08/22 03:15 Mode of Arrival: EMS Source of Information: Patient, EMS and Medical Record Limitations: No Limitations Description of Symptoms (Recalled from ER Triage Doc. by RN): Pt arrived via EMS w/ c/o LUQ and LLQ abd pain that radiates into his back. Pt states it started this morning and has been hurting him all day. He does endorse intermittent nausea, Denies vomiting, diarrhea, urinary changes, or fevers. He is tender with palpation to LUQ and LLQ. Pt was seen at [facility] last week and treated for diverticulitis and has completed his course of abx. History of Present Illness HPI narrative: pt with ongoing intermittent lt sided abd pain - has hx of diverticular dis - has not seen pcp - has been at [facility] earlier today with improved ct - no fever - has not started new bp med MD complaint: abdominal pain Onset (ago): day(s) Consistency: intermittent Location: LLQ Severity: similar to previous episodes Quality: sharp Associated symptoms: nausea and vomiting Related Data Home Medications Medication Instructions Recorded Confirmed aspirin 81 mg chewable tablet 81 mg PO DAILY Heart Health 08/08/22 08/08/22 lisinopril 20 mg tablet 20 mg PO DAILY High blood pressure 08/08/22 08/08/22 omeprazole 40 mg capsule,delayed 40 mg PO DAILY GERD 08/08/22 08/08/22 release Allergies Allergy/AdvReac Type Severity Reaction Status Date / Time hydromorphone [From Dilaudid] Allergy Verified 08/07/22 10:26 [facility] Disclaimer: The information contained in this section may have been updated after the patient was seen, as this information can be updated by other users. Medical History Arterial dissection Deep vein thrombosis (DVT) Diabetes History of heart attack History of stroke Hypertension Surgical History History of cholecystectomy Social History Smoking Status: Current every day smoker alcohol intake: never current occupational status: employed Travel in the last 8 weeks: None ROS Obtained: Yes All systems reviewed & no additional complaints except as documented Physical Exam General General appearance: alert Head Head exam: normocephalic Eye Eye exam: Present PERRL and EOMI; Absent scleral icterus ENT ENT exam: Present mucous membranes moist Neck Neck exam: Present trachea midline Respiratory Respiratory exam: Present normal lung sounds bilaterally; Absent respiratory distress Cardiovascular Cardiovascular exam: Present regular rate Abdominal Exam Abdominal exam: Present soft and tenderness; Absent guarding, rebound or rigidity Abdominal tenderness: Present LLQ and mild Extremities Exam Extremities exam: Present full ROM Back Exam Back exam: Absent CVA tenderness (L) Neurological Exam Neurological exam: Present alert, oriented X3 and CN II-XII intact; Absent motor sensory deficit Psychiatric Psychiatric exam: Present normal affect Skin Skin exam: Absent rash Medical Decision Making Medical Records Medical records reviewed: Yes I reviewed the patient's medical records. Joey Inquiry Pt receiving controlled substance
[2022-08-08 03:53] LABS: Erythrocyte Sedimentation Rate 20 mm/hr (0-20)
--- NOTE | 2022-08-08 04:03 | PC.NURSE ---
Pt given phone to call his at this time.
--- NOTE | 2022-08-08 04:06 | PC.NURSE ---
Pt now agreeable to try IV Tylenol while he waits for his to arrive.
[2022-08-08 05:07] VITALS: BP 188/74; PULSE 78; RESP 16; TEMP 37; O2SAT 98
== END 2022-08-08 05:09 | disposition home or self-care (01) ==
PROVIDERS: Emergency Provider Emergency Medicine; PCP Family Medicine
DX: E11.9 Type 2 diabetes mellitus without complications (principal); I10 Essential (primary) hypertension; R10.12 Left upper quadrant pain; R10.32 Left lower quadrant pain; I25.2 Old myocardial infarction; F17.210 Nicotine dependence, cigarettes, uncomplicated; Z86.73 Personal history of transient ischemic attack (TIA), and cerebral infarction without residual deficits; Z86.718 Personal history of other venous thrombosis and embolism; Z90.49 Acquired absence of other specified parts of digestive tract
CPT/HCPCS: 80053; 82150; 83690; 85025; 85651; 86140; 93005; 96361; 96374; 96375; 96376; 99285; C9803; J0131; J2405; U0003; U0005

== ENCOUNTER 2022-08-15 21:57 | Emergency (ER) | payer MEDICAID, SELFPAY ==
[2022-08-15 22:09] VITALS: BP 206/97; PULSE 85; RESP 18; TEMP 36.6; O2SAT 98; BMI 29.7
--- NOTE | 2022-08-15 22:22 | CT_ITS ---
PROCEDURE INFORMATION: Exam: CT Chest Without Contrast; Diagnostic Exam date and time: 08/15/2022 11:07 PM Age: 56 years old Clinical indication: Pain and injury or trauma; Fall; Chest wall pain and right-sided; Additional info: Rib injury TECHNIQUE: Imaging protocol: Diagnostic computed tomography of the chest without contrast. 3D rendering (Not supervised by radiologist): MIP and/or 3D reconstructed images were created by the technologist. Radiation optimization: All CT scans at this facility use at least one of these dose optimization techniques: automated exposure control; mA and/or kV adjustment per patient size (includes targeted exams where dose is matched to clinical indication); or iterative reconstruction. REPORTING DATA: Count of CT and Cardiac NM exams in prior 12 months: This patient has received 4 known CTs and 0 known cardiac nuclear medicine studies in the 12 months prior to the current study. COMPARISON: CR XR CHEST 2V 08/15/2022 10:54 PM FINDINGS: Lungs: There are severe emphysematous changes of the upper lobes [id number]-left. Pleural spaces: Unremarkable. No pneumothorax. No pleural effusion. Heart: Unremarkable. No cardiomegaly. No pericardial effusion. Coronary arteries: There are mild coronary artery calcifications. Lymph nodes: Unremarkable. No enlarged lymph nodes. Vasculature: Aortic stent graft is in place extending from the mid transverse arch to the upper abdominal aorta. There is no aneurysmal dilation of the aorta. Right renal artery stent is noted. Diaphragm: A small hiatal hernia is present. Gallbladder and bile ducts: The gallbladder is absent. There is no biliary ductal dilation. Adrenal glands: Nodular thickening of the left adrenal gland. Kidneys and ureters: 3.4 cm right renal cyst is noted. There is significant scarring of the lower pole cortex right kidney. Tiny calcification is noted in the right lower kidney. Bones/joints: Age indeterminate wedge compression deformity of the T6 vertebral body. There is no retropulsed fragment or surrounding soft tissue edema. Soft tissues: Unremarkable. IMPRESSION: 1. There is an age-indeterminate mild wedge compression deformity of the T6 body. There is no retropulsed fragment or surrounding edema. 2. There is no fracture of the ribcage or sternum. 3. Other findings as detailed. COMMENTS: 1. Consistent with the [employer]'s Incidental Findings Committee white paper (J Am Uday Radiol 2018): Any incidental renal lesion less than 1 cm or classified as too small to characterize, or any incidental cystic renal lesion characterized as simple-appearing, is likely benign. No follow-up imaging is recommended for these lesions per consensus recommendations based on imaging criteria. 2. In the absence of a history or active diagnosis of lung cancer, it is recommended that this patient with emphysema be evaluated for enrollment in a low dose CT lung cancer screening program.
--- NOTE | 2022-08-15 22:23 | XR_ITS ---
PROCEDURE INFORMATION: Exam: XR Chest Exam date and time: 08/15/2022 10:54 PM Age: 56 years old Clinical indication: Pain; Right-sided; Prior surgery; Additional info: Rib injury TECHNIQUE: Imaging protocol: Radiologic exam of the chest. Views: 2 views. COMPARISON: CR XR CHEST 2V 03/29/2022 12:47 AM FINDINGS: Lungs: Unremarkable. No consolidation. Pleural spaces: Unremarkable. No pleural effusion. No pneumothorax. Heart/Mediastinum: Unremarkable. No cardiomegaly. Vasculature: Aortic stent graft extends from the mid arch through the upper abdominal aorta. Bones/joints: Unremarkable. IMPRESSION: No acute findings.
[2022-08-15 22:31] VITALS: BP 178/85; PULSE 87; O2SAT 97
[2022-08-15 23:00] VITALS: BP 169/87; PULSE 83; O2SAT 95
--- NOTE | 2022-08-15 23:40 | HMH.EDGENADL ---
Discharge Plan Disposition Patient Disposition: Home, Self-Care Chief Complaint: PAIN Prescriptions Prescriptions: No Action lisinopril 20 mg tablet 20 mg PO DAILY omeprazole 40 mg capsule,delayed release(DR/EC) 40 mg PO DAILY aspirin 81 mg tablet,chewable 81 mg PO DAILY Label Comments: TAKE 1 TABLET BY MOUTH EVERY DAY Referrals Follow up/Referrals: Maxwell Rodriguez [Primary Care Provider] - See instructions Clinical Impressions Clinical Impression: Contusion of rib on right side Instructions Patient Instructions: DI for Rib Contusion Discharge ED Provider: Elisha (ED)Shoaib General Adult HPI General Chief complaint: PAIN Stated complaint: AO 1800 fell pain in right side Time Seen by Provider: 08/15/22 23:40 Mode of Arrival: Ambulatory Source of Information: Patient, Spouse and Medical Record Limitations: No Limitations Description of Symptoms (Recalled from ER Triage Doc. 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 History of Present Illness HPI narrative: fall and acute rt rib pain - no other c/o at this time Onset (ago): hour(s) Location: chest Radiation: back Severity: moderate Associated symptoms: denies other symptoms Related Data Home Medications Medication Instructions Recorded Confirmed aspirin 81 mg chewable tablet 81 mg PO DAILY Heart Health 08/08/22 08/08/22 lisinopril 20 mg tablet 20 mg PO DAILY High blood pressure 08/08/22 08/08/22 omeprazole 40 mg capsule,delayed 40 mg PO DAILY GERD 08/08/22 08/08/22 release Allergies Allergy/AdvReac Type Severity Reaction Status Date / Time hydromorphone [From Dilaudid] Allergy Verified 08/07/22 10:26 [facility] Disclaimer: The information contained in this section may have been updated after the patient was seen, as this information can be updated by other users. Medical History Arterial dissection Deep vein thrombosis (DVT) Diabetes History of heart attack History of stroke Hypertension Surgical History History of cholecystectomy Social History Smoking Status: Current every day smoker alcohol intake: never current occupational status: employed Travel in the last 8 weeks: None ROS Obtained: Yes All systems reviewed & no additional complaints except as documented Physical Exam General General appearance: alert Head Head exam: normocephalic Eye Eye exam: Present PERRL and EOMI ENT ENT exam: Present mucous membranes moist Neck Neck exam: Present trachea midline Chest Chest inspection: Present tenderness Respiratory Respiratory exam: Present normal lung sounds bilaterally; Absent respiratory distress Cardiovascular Cardiovascular exam: Present regular rate Abdominal Exam Abdominal exam: Present soft Extremities Exam Extremities exam: Present full ROM Neurological Exam Neurological exam: Present alert, oriented X3 and CN II-XII intact; Absent motor sensory deficit Psychiatric Psychiatric exam: Present normal affect Skin Skin exam: Absent rash Medical Decision Making Medical Records Medical records reviewed: Yes I reviewed the patient's medical records. Joey Inquiry Pt receiving controlled substance: No Vital Signs: 08/15/22 22:09 08/15/22 22:31 08/15/22 23:00 Temperature 98 F Temperature Source Oral Pulse Rate 87 83 Pulse Rate [Right] 85 Respiratory Rate 18 Blood Pressure 178/85 H 169/87 H Blood Pressure [Right Arm] 206/97 H Blood Pressure Mean 116 111 Blood Pressure Mean [Right Arm] 133 Blood Pressure Source [Right Arm] Automatic Cuff Blood Pressure Position [Right Arm] Sitting 02 Sat by Pulse Oximetry 98 97 95 Oxygen Delivery Method Room Air Lab Data Lab results reviewed: Yes I reviewed the patient's lab results. Orders (Tests/Meds): O
[2022-08-16] VITALS: BP 159/82; PULSE 84; RESP 98; TEMP 36.6
== END 2022-08-16 00:02 | disposition home or self-care (01) ==
PROVIDERS: Emergency Provider Emergency Medicine; PCP Family Medicine
DX: S20.211A Contusion of right front wall of thorax, initial encounter (principal); W22.8XXA Striking against or struck by other objects, initial encounter
CPT/HCPCS: 71046; 71250; 96374; 96375; 99284; J2405

== ENCOUNTER 2022-11-11 15:38 | Emergency (ER) | payer MEDICAID, SELFPAY ==
[2022-11-11 15:40] VITALS: BP 195/104; BP 202/110; PULSE 78; RESP 17; TEMP 36.6; O2SAT 99
--- NOTE | 2022-11-11 15:54 | PC.NURSE ---
Triage completed. NAD from patient. Placed back out in lobby until bed is available. No complaints or needs from patient at this time
--- NOTE | 2022-11-11 16:46 | PC.NURSE ---
ROUNDED ON PATIENT IN LOBBY, NO NEEDS AT THIS TIME, DECLINED VITALS
[2022-11-11 18:14] LABS: Microscopic, Urine URINE MICROSCOPIC (MICROSCOPIC)
[2022-11-11 18:16] LABS: Appearance,Urine CLEAR (Clear); Bilirubin,Urine Negative (Negative); Blood, Urine Negative (Negative); Color,Urine YELLOW (Yellow); Glucose,Urine (UA) Negative (Negative); Ketones,Urine Negative (Negative); Leukocyte Esterase,Urine Negative (Negative); Nitrate,Urine Negative (Negative); Protein,Urine 2+ (Negative); Urobilinogen,Urine 0.2 EU/dl (0.2)
--- NOTE | 2022-11-11 18:23 | HMH.EDGENADL ---
Discharge Plan Disposition Patient Disposition: Home, Self-Care Condition: Fair Chief Complaint: PAIN Prescriptions Prescriptions: No Action lisinopril 20 mg tablet 20 mg PO DAILY omeprazole 40 mg capsule,delayed release(DR/EC) 40 mg PO DAILY aspirin 81 mg tablet,chewable 81 mg PO DAILY Label Comments: TAKE 1 TABLET BY MOUTH EVERY DAY Referrals Follow up/Referrals: Maxwell Rodriguez [Primary Care Provider] - See instructions Clinical Impressions Clinical Impression: Peripheral arterial disease, Chronic pain Instructions Patient Instructions: DI for Chronic Pain -- Adult Discharge ED Provider: Alejandro Abebe Adult HPI General Chief complaint: PAIN Stated complaint: groin pain Time Seen by Provider: 11/11/22 18:27 Mode of Arrival: Ambulatory Source of Information: Patient Limitations: No Limitations Description of Symptoms (Recalled from ER Triage Doc. by RN): 57 M presents with right groin pain that began in October 2020 after he had a blood clot removed at [facility]. Patient states this pain is acting up again and he can't see his doctor until the 18 of November. Patient denies dysuria, hematuria, or pain that radiates. History of Present Illness HPI narrative: This is a 57-year-old white male with a history of a of arterial insufficiency and had stents placed 2 years ago patient states that that he is getting pain in his right leg this been going on for the past several months. Patient denies any numbness or weakness in the right foot patient is currently taking a baby aspirin and gabapentin. Related Data Home Medications Medication Instructions Recorded Confirmed aspirin 81 mg chewable tablet 81 mg PO DAILY Heart Health 08/08/22 08/08/22 lisinopril 20 mg tablet 20 mg PO DAILY High blood pressure 08/08/22 08/08/22 omeprazole 40 mg capsule,delayed 40 mg PO DAILY GERD 08/08/22 08/08/22 release Allergies Allergy/AdvReac Type Severity Reaction Status Date / Time hydromorphone [From Dilaudid] Allergy Verified 08/07/22 10:26 [facility] Disclaimer: The information contained in this section may have been updated after the patient was seen, as this information can be updated by other users. Medical History Arterial dissection Deep vein thrombosis (DVT) Diabetes History of heart attack History of stroke Hypertension Surgical History History of cholecystectomy Social History Smoking Status: Current every day smoker alcohol intake: never current occupational status: employed Travel in the last 8 weeks: None ROS Obtained: Yes All systems reviewed & no additional complaints except as documented Skin no rash or lesions HEENT no runny nose sore throat Pulmonary no cough or shortness of breath Cardiovascular see HPI GI no abdominal pain nausea or vomiting no dysuria pyuria hematuria Musculoskeletal no neck or back pain Endocrine no polydipsia polyuria or polyphasia Psych no SI or HI The rest of the systems were reviewed and found to be negative Physical Exam Narrative Physical exam: Skin: Warm and dry HEENT: Normocephalic atraumatic extract muscles are intact pupils are equal and reactive to light Neck: Supple nontender Lungs: Clear to auscultation Heart: Regular rate and rhythm Abdomen: NABS soft nontender Extremities: No clubbing cyanosis or edema the right foot is warm pink with 2+ dorsalis pedis pulse distal sensorimotor exam is intact Neurologic: No unilateral weakness or numbness Lymphatic: No cervical or inguinal adenopathy Musculoskeletal: No tenderness of the dorsal or lumbar spine Psych: No SI or HI General General appearance: alert Respiratory Respiratory exam: Present normal lung sounds bilaterally Cardiovascular Cardiovascular exam: Present regular rate Neurological Exam Neurol
--- NOTE | 2022-11-11 18:23 | PC.NURSE ---
Patient states they're leaving if the doctor isn't going to give me any good pain medicine. Patient and spouse walking out and refusing to sign AMA form.
[2022-11-11 18:27] VITALS: BP 0/0; PULSE 0; RESP 0; TEMP -17.7; TEMP 0
[2022-11-11 18:27] LABS: Bacteria,Urine Trace /lpf; RBC,Urine Occasional #/hpf (0-3); Squamous Epithelial Cell,Urine Occasional #/hpf (0-5)
== END 2022-11-11 18:17 | disposition home or self-care (01) ==
PROVIDERS: Emergency Provider Emergency Medicine; PCP Family Medicine
DX: M79.604 Pain in right leg (principal); E11.51 Type 2 diabetes mellitus with diabetic peripheral angiopathy without gangrene; I10 Essential (primary) hypertension; G89.29 Other chronic pain
CPT/HCPCS: 81001; 99283; 99284

== ENCOUNTER 2023-03-26 12:10 | Emergency (ER) | payer MEDICAID, SELFPAY ==
[2023-03-26] VITALS (8 sets, daily range): BP systolic 219–244; BP diastolic 107–113; PULSE 75–87; RESP 18–20; TEMP 36.6–37; O2SAT 95–99; BMI 29.7
--- NOTE | 2023-03-26 12:19 | HMH.EDGENADL ---
Discharge Plan Disposition Patient Disposition: Left Against Medical Advice Prescriptions Prescriptions: New methocarbamol 500 mg tablet 500 mg PO Q6H PRN (Reason: pain) Qty: 30 0RF oxycodone 5 mg tablet 5 mg PO Q8H PRN (Reason: pain) Qty: 12 0RF lidocaine 5 % adhesive patch,medicated 1 patch topical DAILY PRN (Reason: pain) Qty: 30 0RF Rx Instructions: leave on most painful area for up to 12 hrs cyclobenzaprine 5 mg tablet 5 mg PO TID PRN (Reason: muscle spasm) Qty: 30 0RF No Action lisinopril 20 mg tablet 20 mg PO DAILY omeprazole 40 mg capsule,delayed release(DR/EC) 40 mg PO DAILY aspirin 81 mg tablet,chewable 81 mg PO DAILY Patient Comments: TAKE 1 TABLET BY MOUTH EVERY DAY Referrals Follow up/Referrals: Maxwell Rodriguez [Primary Care Provider] - See instructions Activity Restrictions/Add. Instructions Additional Instructions/Restrictions: You have severe hypertension that is poorly controlled. You are at risk for stroke and other serious problems. Recommend following up with your primary care provider or return to the ER immediately if you change your mind about leaving. You have persistent hip pain, I am concerned you could have a fracture or other injury. Recommend obtaining MRI as soon as possible. Please take Tylenol, Flexeril and Robaxin as needed for pain, use lidocaine patches as needed. Clinical Impressions Clinical Impression: Acute hyperglycemia, Acute hip pain, Hypertensive urgency Instructions Patient Instructions: DI for Syncope in Adults (Fainting), DI for Syncope in Children (Fainting) Discharge ED Provider: Ki Davila Adult HPI General Chief complaint: Syncope Time Seen by Provider: 03/26/23 12:19 History of Present Illness HPI narrative: 57-year-old male, history of chronic poorly controlled hypertension, poorly controlled vix-aqosium-rsewhyoei diabetes, presents with severe right hip/thigh pain. Patient reports that he was getting up from the chair at home when he felt a pop in his right hip, had severe pain, felt lightheaded and went to the ground. He reports mild dizziness in the shortly after but then resolved. He reports severe right hip pain. Reports new low back pain. Related Data Home Medications Medication Instructions Recorded Confirmed aspirin 81 mg chewable tablet 81 mg PO DAILY [facility] 08/08/22 08/08/22 lisinopril 20 mg tablet 20 mg PO DAILY High blood pressure 08/08/22 08/08/22 omeprazole 40 mg capsule,delayed 40 mg PO DAILY GERD 08/08/22 08/08/22 release Previous Rx's Medication Instructions Recorded cyclobenzaprine 5 mg tablet 5 mg PO TID PRN muscle spasm #30 03/26/23 tabs lidocaine 5 % topical patch 1 patch topical DAILY PRN pain #30 03/26/23 ea methocarbamol 500 mg tablet 500 mg PO Q6H PRN pain #30 tabs 03/26/23 oxycodone 5 mg tablet 5 mg PO Q8H PRN pain #12 tabs 03/26/23 Allergies Allergy/AdvReac Type Severity Reaction Status Date / Time hydromorphone [From Dilaudid] Allergy Verified 08/07/22 10:26 [facility] Disclaimer: The information contained in this section may have been updated after the patient was seen, as this information can be updated by other users. Medical History Arterial dissection Deep vein thrombosis (DVT) Diabetes History of heart attack History of stroke Hypertension Surgical History History of cholecystectomy Social History Smoking Status: Never smoker alcohol intake: never current occupational status: employed Travel in the last 8 weeks: None ROS Obtained: Yes All systems reviewed & no additional complaints except as documented Physical Exam General General appearance: alert and in no apparent distress Head Head exam: atraumatic and normocephalic Eye Eye exam: Present
--- NOTE | 2023-03-26 12:27 | XR_ITS ---
FINAL REPORT CLINICAL HISTORY: fall, pain FINDINGS: Right femur Two views were obtained. There is no acute fracture or dislocation. There are ceab-sr-tnchmoco degenerative changes of the right hip. No soft tissue abnormality is identified. IMPRESSION: No acute process. Reviewed, Interpreted and Dictated by Jd Hunt III, MD Transcribed by Trang Olson Authenticated and [facility]
--- NOTE | 2023-03-26 12:27 | CT_ITS ---
FINAL REPORT TECHNIQUE: Axial images were performed through the lumbar spine by computed tomography. Sagittal reconstruction images were also performed. This study was performed with techniques to keep radiation doses as low as reasonably achievable, (ALARA). Individualized dose reduction techniques using automated exposure control or adjustment of mA and/or kV according to the patient''s size were employed. CLINICAL HISTORY: fall, back pain FINDINGS: No acute fracture is identified. There is 9 mm of anterolisthesis of L5 on S1. Mild and moderate degenerative changes are identified, greatest at L5-S1. There are bilateral L5 pars defects. IMPRESSION: Bilateral L5 pars defects. Degenerative changes without acute bony abnormality. Reviewed, Interpreted and Dictated by Jd Hunt III, MD Transcribed by Trang Olson Authenticated and [facility]
--- NOTE | 2023-03-26 12:27 | CT_ITS ---
FINAL REPORT TECHNIQUE: Axial images through the pelvis were performed by computed tomography. This study was performed with techniques to keep radiation doses as low as reasonably achievable (ALARA). Individualized dose reduction techniques using automated exposure control or adjustment of mA and/or kV according to the patient's size were employed. CLINICAL HISTORY: fall, pelvic/hip pain FINDINGS: An aortic stent and right renal stent are identified. There are degenerative changes of the hips and in the lower lumbar spine. No acute fracture is identified. IMPRESSION: No acute fracture identified. Reviewed, Interpreted and Dictated by Jd Hunt III, MD Transcribed by Trang Olson Authenticated and [facility]
--- NOTE | 2023-03-26 12:28 | XR_ITS ---
FINAL REPORT CLINICAL HISTORY: fall, pain FINDINGS: Pelvis A single view was obtained. There is no acute fracture or dislocation. There are qqdm-[id number]-jfaofdwa degenerative changes of the hips. A right pelvis stent is identified. No soft tissue abnormality is identified. IMPRESSION: No acute process. Reviewed, Interpreted and Dictated by Jd Hunt III, MD Transcribed by Trang Olson Authenticated and [facility] [place] [place]
--- NOTE | 2023-03-26 12:36 | ECG_ITS ---
APPROVED REPORT Exam: Resting ECG HR:82 bpm ECG Measurements Heart Rate 82 AXES NC 139 P 62 QRSd 100 QRS 30 QT 391 T 43 QTc 429 Conclusion SINUS RHYTHM NONSPECIFIC T-WAVE ABNORMALITY BORDERLINE ECG UNCONFIRMED REPORT Electronically signed by : Cesar Pagan MD 03/27/2023 21:28:06
--- NOTE | 2023-03-26 12:40 | PC.NURSE ---
Dr. Davila notified of pt bp
--- NOTE | 2023-03-26 13:05 | PC.NURSE ---
pt to CT
[2023-03-26 13:36] LABS: Basophils % 0.4 % (0.1-2.0); Eosinophils # 0.2 K/mm3 (0.0-0.4); Lymphocytes # 1.9 K/mm3 (0.7-4.5); Monocytes # 0.4 K/mm3 (0.1-1.0); Neutrophils # 6.7 K/mm3 (1.8-7.8); Red Cell Distribution Width 14.4 % (11.5-17.5)
[2023-03-26 13:42] LABS: Chloride 103 mmol/L (98-107)
[2023-03-26 13:43] LABS: Sodium 137 mmol/L (136-145)
[2023-03-26 13:45] LABS: Alanine Aminotransferase 30 U/L (12-78); Alkaline Phosphatase 363 U/L (38-126); Aspartate Amino Transferase 24 U/L (17-59); Bilirubin,Total 0.3 mg/dl (0.2-1.3); Blood Urea Nitrogen 18 mg/dl (9-20); Carbon Dioxide 28 mmol/L (22.0-30.0); Creatinine Clearance Estimated 92 mL/min (50-200); Estimated Glomerular Filt Rate 69 ml/min (>60); GFR (African American) 84 ML/MIN (>60)
[2023-03-26 13:46] LABS: Albumin Level 4.1 g/dl (3.5-5.0); Albumin/Globulin Ratio 1.3 (1.1-1.8); Calcium 8.9 mg/dl (8.4-10.2); Globulin 3.2 g/dL (1.3-3.2); Total Protein,Serum 7.3 g/dl (6.3-8.2)
[2023-03-26 13:47] LABS: Glucose 454 mg/dl (74-100)
[2023-03-26 13:49] LABS: Hematocrit 52.8 % (42.0-52.0); Lymphocytes % 20.3 % (10-50); Mean Corpuscular HGB Conc 34.2 g/dL (31.8-35.4); Mean Corpuscular Hemoglobin 32.2 pg (27.0-31.2); Mean Corpuscular Volume 94.4 fl (80-94); Monocytes % 4.7 % (1.7-9.3); Neutrophils % 72.6 % (37.0-80.0); Platelet Count 204 K/mm3 (142-424); Red Blood Count 5.59 M/mm3 (4.60-6.20); White Blood Count 9.3 K/mm3 (4.8-10.8)
== END 2023-03-26 15:07 | disposition left against medical advice (07) ==
PROVIDERS: Emergency Provider Emergency Medicine; PCP Family Medicine
DX: R73.9 Hyperglycemia, unspecified (principal); M25.559 Pain in unspecified hip; I16.0 Hypertensive urgency
CPT/HCPCS: 72131; 72170; 72192; 73552; 80053; 85025; 93005; 96374; 96375; 99285

== ENCOUNTER 2023-04-06 17:23 | Emergency (ER) | payer MEDICAID, SELFPAY ==
[2023-04-06 17:24] VITALS: PULSE 106; RESP 18; TEMP 37.7; O2SAT 97
--- NOTE | 2023-04-06 17:59 | EXP.UTC ---
Discharge Plan Disposition Patient Disposition: Home, Self-Care Condition: Good Prescriptions Prescriptions: New amoxicillin-pot clavulanate 875-125 mg Tablet 1 tab PO Q12H Qty: 20 0RF No Action lisinopril 20 mg tablet 20 mg PO DAILY omeprazole 40 mg capsule,delayed release(DR/EC) 40 mg PO DAILY aspirin 81 mg tablet,chewable 81 mg PO DAILY Patient Comments: TAKE 1 TABLET BY MOUTH EVERY DAY oxycodone 5 mg tablet 5 mg PO Q8H PRN (Reason: pain) Qty: 12 0RF lidocaine 5 % adhesive patch,medicated 1 patch topical DAILY PRN (Reason: pain) Qty: 30 0RF Rx Instructions: leave on most painful area for up to 12 hrs cyclobenzaprine 5 mg tablet 5 mg PO TID PRN (Reason: muscle spasm) Qty: 30 0RF sucralfate 1 gram tablet 2 g PO DAILY clopidogrel 75 mg tablet 75 mg PO TID PRN (Reason: Pain (Scale Score 1-3)) Patient Comments: TAKE 1 TABLET BY MOUTH EVERY DAY gabapentin 800 mg tablet 800 mg PO TID Patient Comments: TAKE 1 TABLET BY MOUTH THREE TIMES A DAY amlodipine 10 mg tablet 10 mg PO DAILY oxycodone 5 mg tablet See Rx Instructions .ROUTE .COMPLEX Patient Comments: TAKE 1 TABLET BY MOUTH EVERY 8 HOURS NEEDED FOR ACUTE PAIN (R52). Rx Instructions: TAKE 1 TABLET BY MOUTH EVERY 8 HOURS NEEDED FOR ACUTE PAIN Referrals Follow up/Referrals: Maxwell Rodriguez [Primary Care Provider] - See instructions Activity Restrictions/Add. Instructions Additional Instructions/Restrictions: Take your normal pain medication for pain. Take the antibiotics as directed. Follow up with your regular doctor. Follow up with your dentist as soon as they can see you. GO TO THE ER FOR ANY WORSENING SYMPTOMS Clinical Impressions Clinical Impression: Abscess, dental, Pain, dental, Jaw pain Instructions Patient Instructions: Tooth Abscess, DI for Tooth Abscess, Ceftriaxone Injection Discharge ED Provider: Keenan Alfaro [facility] General Stated complaint: dental pain Mode of Arrival: Ambulatory Source of Information: Patient Limitations: No Limitations Time Seen by Provider: 04/06/23 17:59 Description of Symptoms (Recalled from Triage Doc. by RN): broken or abcessed tooth, is in terrible pain, swelling on thr right side of jaw, and sore throat. HEENT Symptoms (Recalled from RN notes): Yes Resp Symptoms (Recalled from RN notes): No Skin Symptoms (Recalled from RN notes): No MS Symptoms (Recalled from RN notes): No Functional Status (Recalled from RN notes): n/a History of Present Illness Provider Complaint: He states that he has had dental pain for the past 2 weeks. His pain is located in his right lower jaw. He has a history of having multiple decayed and broken teeth. Related Data Home Medications Medication Instructions Recorded Confirmed aspirin 81 mg chewable tablet 81 mg PO DAILY [facility] 08/08/22 04/06/23 lisinopril 20 mg tablet 20 mg PO DAILY High blood pressure 08/08/22 04/06/23 omeprazole 40 mg capsule,delayed 40 mg PO DAILY GERD 08/08/22 08/08/22 release amlodipine 10 mg tablet 10 mg PO DAILY 04/06/23 04/06/23 clopidogrel 75 mg tablet 75 mg PO TID PRN Pain (Scale Score 04/06/23 04/06/23 1-3) gabapentin 800 mg tablet 800 mg PO TID 04/06/23 04/06/23 oxycodone 5 mg tablet See Rx Instructions .Route .COMPLEX 04/06/23 04/06/23 sucralfate 1 gram tablet 2 g PO DAILY 04/06/23 04/06/23 Previous Rx's Medication Instructions Recorded cyclobenzaprine 5 mg tablet 5 mg PO TID PRN muscle spasm #30 03/26/23 tabs lidocaine 5 % topical patch 1 patch topical DAILY PRN pain #30 03/26/23 ea oxycodone 5 mg tablet 5 mg PO Q8H PRN pain #12 tabs 03/26/23 amoxicillin 875 mg-potassium 1 tab PO Q12H #20 tabs 04/06/23 clavulanate 125 mg tablet Allergies Allergy/AdvReac Type Severity Reaction Status Date / Time chocolate flavor Allergy Verified 04/06/23 17:42 hydromorphone [From Dilaudid] Allergy Veri
[2023-04-06 18:39] VITALS: BP 188/94; PULSE 106; RESP 18; TEMP 37.7; O2SAT 97
== END 2023-04-06 18:39 | disposition home or self-care (01) ==
PROVIDERS: Emergency Provider Nurse Practitioner Family; PCP Family Medicine
DX: R68.84 Jaw pain (principal); K04.7 Periapical abscess without sinus; I10 Essential (primary) hypertension; E11.9 Type 2 diabetes mellitus without complications; Z86.73 Personal history of transient ischemic attack (TIA), and cerebral infarction without residual deficits
CPT/HCPCS: 96372; 99204; 99212; G0463; J0696

== ENCOUNTER 2023-10-17 02:52 | Emergency (ER) | payer MEDICAID, SELFPAY ==
[2023-10-17 02:54] VITALS: BP 205/110; PULSE 84; RESP 20; TEMP 36.7; O2SAT 98; BMI 27.3
--- NOTE | 2023-10-17 02:57 | HMH.EDGENADL ---
Discharge Plan Disposition Patient Disposition: Home, Self-Care Prescriptions Prescriptions: New cyclobenzaprine 5 mg tablet 5 mg PO TID PRN (Reason: muscle spasm) Qty: 30 0RF No Action lisinopril 20 mg tablet 20 mg PO DAILY omeprazole 40 mg capsule,delayed release(DR/EC) 40 mg PO DAILY aspirin 81 mg tablet,chewable 81 mg PO DAILY Patient Comments: TAKE 1 TABLET BY MOUTH EVERY DAY oxycodone 5 mg tablet 5 mg PO Q8H PRN (Reason: pain) Qty: 12 0RF lidocaine 5 % adhesive patch,medicated 1 patch topical DAILY PRN (Reason: pain) Qty: 30 0RF Rx Instructions: leave on most painful area for up to 12 hrs cyclobenzaprine 5 mg tablet 5 mg PO TID PRN (Reason: muscle spasm) Qty: 30 0RF sucralfate 1 gram tablet 2 g PO DAILY clopidogrel 75 mg tablet 75 mg PO TID PRN (Reason: Pain (Scale Score 1-3)) Patient Comments: TAKE 1 TABLET BY MOUTH EVERY DAY gabapentin 800 mg tablet 800 mg PO TID Patient Comments: TAKE 1 TABLET BY MOUTH THREE TIMES A DAY amlodipine 10 mg tablet 10 mg PO DAILY oxycodone 5 mg tablet See Rx Instructions .ROUTE .COMPLEX Patient Comments: TAKE 1 TABLET BY MOUTH EVERY 8 HOURS NEEDED FOR ACUTE PAIN (R52). Rx Instructions: TAKE 1 TABLET BY MOUTH EVERY 8 HOURS NEEDED FOR ACUTE PAIN amoxicillin-pot clavulanate 875-125 mg Tablet 1 tab PO Q12H Qty: 20 0RF Referrals Follow up/Referrals: Maxwell Rodriguez [Primary Care Provider] - See instructions Activity Restrictions/Add. Instructions Additional Instructions/Restrictions: Please follow-up with your primary care provider. Please return to the emergency department if you develop any new or worsening symptoms or become concerned for your health. Please use Tylenol and ibuprofen as needed for pain. Please use Flexeril as needed. Please use heat and ice as needed. Clinical Impressions Clinical Impression: Acute foot pain Qualifiers: Laterality: right Qualified Code(s): M79.671 - Pain in right foot Discharge ED Provider: Ki Davila General Adult HPI General Chief complaint: Fall Stated complaint: fall 01:30, right leg pain Time Seen by Provider: 10/17/23 02:54 History of Present Illness HPI narrative: 37-year-old male with history as reported below presents with foot and ankle pain after a fall from standing. He was getting up to go to pee when he hit his foot on something and fell. He denied his head, denies consciousness. He specifically denies any headache neck pain chest pain abdominal pain back pain etc. He reports pain is localized to his right foot, ankle, subtle pain in the tib-fib. He is on blood thinners but specifically denies any head or neck trauma. Related Data Home Medications Medication Instructions Recorded Confirmed aspirin 81 mg chewable tablet 81 mg PO DAILY [facility] 08/08/22 04/06/23 lisinopril 20 mg tablet 20 mg PO DAILY High blood pressure 08/08/22 04/06/23 omeprazole 40 mg capsule,delayed 40 mg PO DAILY GERD 08/08/22 08/08/22 release amlodipine 10 mg tablet 10 mg PO DAILY 04/06/23 04/06/23 clopidogrel 75 mg tablet 75 mg PO TID PRN Pain (Scale Score 04/06/23 04/06/23 1-3) gabapentin 800 mg tablet 800 mg PO TID 04/06/23 04/06/23 oxycodone 5 mg tablet See Rx Instructions .Route .COMPLEX 04/06/23 04/06/23 sucralfate 1 gram tablet 2 g PO DAILY 04/06/23 04/06/23 Previous Rx's Medication Instructions Recorded cyclobenzaprine 5 mg tablet 5 mg PO TID PRN muscle spasm #30 03/26/23 tabs lidocaine 5 % topical patch 1 patch topical DAILY PRN pain #30 03/26/23 ea oxycodone 5 mg tablet 5 mg PO Q8H PRN pain #12 tabs 03/26/23 amoxicillin 875 mg-potassium 1 tab PO Q12H #20 tabs 04/06/23 clavulanate 125 mg tablet cyclobenzaprine 5 mg tablet 5 mg PO TID PRN muscle spasm #30 10/17/23 tabs Allergies Allergy/AdvReac Type Severity Reaction Status Date / Time chocolate flavor Allergy Verified 04/06/23 17:42 hydromorphone [From Dilaudid] Allergy Verified 04/06/23 17:42 adhesive tape AdvReac Verified 10/17/23 03:09 [facility] Disclaimer: The information contained in this section may have been updated after the patient was seen, as this information can be updated by other users. Medical History Arterial dissection Deep vein thrombosis (DVT) Diabetes History of heart attack History of stroke Hypertension Surgical History History of cholecystectomy Social History Smoking Status: Current every day smoker alcohol intake: never current occupational status: employed Travel in the last 8 weeks: None ROS Obtained: Yes All systems reviewed & no additional complaints except as documented Physical Exam General General appearance: alert and in no apparent distress Head Head exam: atraumatic and normocephalic Eye Eye exam: Present normal appearance, PERRL and EOMI ENT ENT exam: Present normal oropharynx and normal external ear exam Neck Neck exam: Present normal inspection and full ROM Chest Chest inspection: Present normal inspection and symmetric chest wall rise; Absent tenderness Respiratory Respiratory exam: Present normal lung sounds bilaterally; Absent respiratory distress Cardiovascular Cardiovascular exam: Present regular rate and normal rhythm Abdominal Exam Abdominal exam: Present soft; Absent distention, tenderness or guarding Extremities Exam Extremities exam: Present other (Mild erythema and bruising to the distal foot with associated tenderness. Mild tenderness to the ankle, mild tenderness of the proximal fibula. Normal neurovascular exam.) Back Exam Back exam: Present normal inspection; Absent tenderness Neurological Exam Neurological exam: Present alert and oriented X3; Absent motor sensory deficit Psychiatric Psychiatric exam: Present normal affect and normal mood Skin Skin exam: Present warm, dry and normal color Lymphatic Lymphatic Findings: no adenopathy Medical Decision Making Medical Records Medical records reviewed: Yes I reviewed the patient's medical records. Joey Inquiry Pt receiving controlled substance: No Joey was queried for this patient: No Vital Signs: 10/17/23 02:54 Temperature 98.1 F Temperature Source Oral Pulse Rate [Left Radial] 84 Respiratory Rate 20 Blood Pressure [Right Arm] 205/110 H Blood Pressure Mean [Right Arm] 141 Blood Pressure Source [Right Arm] Automatic Cuff Blood Pressure Position [Right Arm] Sitting 02 Sat by Pulse Oximetry 98 Oxygen Delivery Method Room Air Lab Data Lab results reviewed: Yes I reviewed the patient's lab results. Orders (Tests/Meds): ED MEDICATIONS Generic Name Dose Route Start Last Admin Trade Name Freq PRN Reason Stop Dose Admin Cyclobenzaprine HCl 10 mg 10/17/23 04:26 Cyclobenzaprine 10mg Tablet PO 10/17/23 04:27 ONCE ONE Discontinued Medications Generic Name Dose Route Start Last Admin Trade Name Natalya PRN Reason Stop Dose Admin Acetaminophen 1,000 mg 10/17/23 03:09 10/17/23 03:12 Acetaminophen 500mg Tab PO 10/17/23 03:10 1,000 mg ONCE ONE Administration ORDERS Category Date Time Status Ankle XR -Right minimum 3 Views [XR ankle RT min 3V] Exams 10/17/23 03:00 Completed Stat Fibula/tibia XR right 2 views [XR tibia fibula RT 2V] Exams 10/17/23 03:00 Completed Stat Foot XR right minimum 3 views [XR foot RT min 3V] Stat Exams 10/17/23 03:00 Completed Medical Decision Narrative: 57-year-old male with history as reported above presents with low mechanism fall and right foot and ankle pain. He is on blood thinners but he did not hit his head or lose consciousness, denies any neck chest abdominal or back pain.. History was obtained interactive discussion with patient, family. On arrival, patient is [afebrile, hemodynamically stable, satting appropriately, alert, oriented x4, GCS 15], moving all extremities spontaneously. Full physical exam performed and significant for focal mild bruising and moderate tenderness to the right foot and ankle Differential includes but is not limited to fracture, dislocation, neurovascular/ligamentous injury. Patient was given p.o. Tylenol, p.o. Flexeril for symptomatic management and correction of underlying abnormalities. Workup initiated including radiographs of the right foot ankle tib-fib.. On re-evaluation, patient [remains afebrile, HD stable.] Imaging independently interpreted by me and significant for no acute fracture or dislocation.. See radiology read for full review of final results. CT of the head neck, CT of the foot and ankle was considered, but deemed unnecessary due to history and exam.. Given patient history, exam and workup, patient's presentation most likely represents bruising/strain to the right foot after fall. Findings were communicated to patient. He was given return precautions and encouraged to return if symptoms worsen or do not improve. He was discharged with prescription for Flexeril.. Procedures Risk/Benefits of Procedure(s) Were Explained: Yes Critical Care Critical Care Time Critical Care Time: No
--- NOTE | 2023-10-17 03:00 | XR_ITS ---
PROCEDURE INFORMATION: Exam: XR Right Tibia and Fibula Exam date and time: 10/17/2023 3:03 AM Age: 57 years old Clinical indication: Pain; Lower leg; Right; Additional info: Fall promixal fib pain TECHNIQUE: Imaging protocol: Radiologic exam of the right tibia and fibula. Views: 2 views. COMPARISON: No relevant prior studies available. FINDINGS: Bones/joints: Normal. Soft tissues: Normal. IMPRESSION: No acute findings.
--- NOTE | 2023-10-17 03:00 | XR_ITS ---
PROCEDURE INFORMATION: Exam: XR Right Ankle Exam date and time: 10/17/2023 3:05 AM Age: 57 years old Clinical indication: Pain; Ankle; Right; Additional info: Fall ankle pain TECHNIQUE: Imaging protocol: Radiologic exam of the right ankle. Views: 3 or more views. COMPARISON: CR XR TIBIA FIBULA RT 2V 10/17/2023 3:03 AM FINDINGS: Bones/joints: Normal. Soft tissues: Normal. IMPRESSION: No acute findings.
--- NOTE | 2023-10-17 03:00 | XR_ITS ---
PROCEDURE INFORMATION: Exam: XR Right Foot Exam date and time: 10/17/2023 3:08 AM Age: 57 years old Clinical indication: Pain; Foot; Right; Additional info: Fall, distal foot pain TECHNIQUE: Imaging protocol: Radiologic exam of the right foot. Views: 3 or more views. COMPARISON: CR XR ANKLE RT MIN 3V 10/17/2023 3:05 AM FINDINGS: Bones/joints: Normal. Soft tissues: Normal. IMPRESSION: No acute findings.
[2023-10-17] MEDS: ACETAMINOPHEN 500MG TAB 1000 MG PO (03:12)
[2023-10-17 04:28] VITALS: BP 204/106; PULSE 78; RESP 18; TEMP 36.8; O2SAT 98
[2023-10-17] MEDS: CYCLOBENZAPRINE 10MG TABLET 10 MG PO (04:32)
== END 2023-10-17 04:41 | disposition home or self-care (01) ==
PROVIDERS: Emergency Provider Emergency Medicine; PCP Family Medicine
DX: M79.671 Pain in right foot (principal); M25.571 Pain in right ankle and joints of right foot; F17.210 Nicotine dependence, cigarettes, uncomplicated; W18.30XA Fall on same level, unspecified, initial encounter
CPT/HCPCS: 73590; 73610; 73630; 99283